=== PATIENT | female | born 2005 | race Caucasian/White ===

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

== ENCOUNTER 2025-03-29 23:04 | Emergency (ER) | payer BC ==
[2025-03-29 23:37] LABS: GLUCOSE,URINE NEGATIVE (NEGATIVE); OCCULT BLOOD,URINE LARGE (NEGATIVE)
[2025-03-29 23:46] LABS: BASOPHILS ABSOLUTE AUTO 0.09 K/uL (0.00-0.30); BASOPHILS PERCENT AUTO 0.9 % (0.0-1.0); EOSINOPHILS ABSOLUTE AUTO 0.11 K/uL (0.00-0.70); EOSINOPHILS PERCENT AUTO 1.1 % (0.0-5.0); IMMATURE GRAN ABSOLUTE AUTO 0.02 K/uL (0.00-0.05); IMMATURE GRAN PERCENT AUTO 0.2 % (0.0-0.4); LYMPHOCYTES ABSOLUTE AUTO 3.36 K/uL (2.00-8.80); LYMPHOCYTES PERCENT AUTO 33.8 % (50.0-65.0); MEAN PLATELET VOLUME 11.3 fL (9.4-12.3); MONOCYTES ABSOLUTE AUTO 0.75 K/uL (0.10-1.40); MONOCYTES PERCENT AUTO 7.5 % (2.0-10.0); NEUTROPHILS ABSOLUTE AUTO 5.62 K/uL (1.50-8.50); NEUTROPHILS PERCENT AUTO 56.5 % (35.0-45.0); NRBC ABSOLUTE 0.00 K/uL (0.00-0.03); NRBC PERCENT 0.0 /100WBC (0.0-0.2); PLATELET COUNT,PLT 243 K/uL (150-400); RED BLOOD CELL COUNT 4.79 M/uL (4.10-5.30); WHITE BLOOD CELL COUNT,WBC 9.95 K/uL (4.5-13.5)
[2025-03-29 23:47] LABS: APPEARANCE,URINE CLOUDY
[2025-03-29 23:48] LABS: EPITHELIAL CELLS,URINE FEW (NONE-FEW)
[2025-03-30] MEDS: Ondansetron 4 MG Tab.DIS PO ONE (00:12)
[2025-03-30 00:20] LABS: A/G RATIO 1.2 (0.9-1.6); ALANINE AMINOTRANSFERASE,ALT 26.0 IU/L (14-63); ASPARTATE AMNIOTRANSFERASE,AST 17.0 IU/L (15-37); BILIRUBIN TOTAL 0.3 mg/dL (0.2-1.0); BLOOD UREA NITROGEN,BUN 9.0 mg/dL (7.0-18.0); CARBON DIOXIDE,CO2 28.9 mmol/L (21.0-32.0); CHLORIDE,CL 105.0 mmol/L (98-107); CREATININE 0.8 mg/dL (0.6-1.0); EST CRCL DRUG DOSING (CG) 93.56 mL/min; GLUCOSE RANDOM 109.0 mg/dL (74-106); POTASSIUM,K 4.0 mmol/L (3.5-5.1); PROTEIN TOTAL,TP 7.6 g/dL (6.4-8.2); SODIUM,NA 143.0 mmol/L (136-145)
[2025-03-30 00:46] LABS: ESTIMATED GFR 109.0 mL/min (>60)
[2025-03-30] MEDS: Iopamidol 755 Mg/ML 100 ML Bottle IVPUSH STA (01:18)
== END 2025-03-30 02:06 | disposition home or self-care (01) ==
LOC: MW.ED 23:04
DX: N12 Tubulo-interstitial nephritis, not specified as acute or chronic (principal); E11.9 Type 2 diabetes mellitus without complications; Z79.899 Other long term (current) drug therapy; Z79.85 Long-term (current) use of injectable non-insulin antidiabetic drugs
CPT/HCPCS: 36415; 74177; 80053; 81001; 83690; 84703; 85025; 99284; A9270; Q9967; 99283